=== PATIENT | male | born 1955 | race Caucasian/White ===

== ENCOUNTER 2017-09-16 14:05 | Emergency (ER) | payer BC ==
[~2017-09-16] VITALS: Ht 177.8 cm; Wt 99.0 kg
[~2017-09-16 14:05] MED LIST: ALLO100 PO; AMBI5TAB PO; ATOR10 PO; HYDR10TA16 PO; NEXI20CA PO; TOPR25TA2 PO
[2017-09-16 14:18] VITALS: BP 141/97; PULSE 102; RESP 16; TEMP 98.4; O2SAT 99
[2017-09-16] MEDS ORDERED: ASPI1TAB57 PO (15:26)
[2017-09-16] MEDS ORDERED: ALLO300T2 PO (15:26)
[2017-09-16] MEDS ORDERED: OMEP20TA93 PO (15:26)
[2017-09-16] MEDS ORDERED: AMLO5TAB2 PO (15:26)
[2017-09-16] MEDS ORDERED: VITA2000 PO (15:26)
[2017-09-16] MEDS ORDERED: HYDR-2376 PO (15:26)
[2017-09-16] MEDS ORDERED: OMEG100046 (15:26)
[2017-09-16] MEDS ORDERED: METO50TA PO (15:26)
[2017-09-16] MEDS ORDERED: LOSA100T PO (15:26)
[2017-09-16] MEDS ORDERED: AUGM875T3 PO (15:38)
--- NOTE | 2017-09-16 15:38 | PD ---
HPI Chief Complaint: Bite or Sting Time Seen by Provider: 15:16 Travel History International Travel<30 days: No Contact w/Intl Traveler<30days: No Traveled to known affect area: No History of Present Illness HPI 62-year-old male here with left thumb pain and subungual hematoma after his dog bit down on his nail accidentally. He reports the nail turned ecchymotic immediately after the injury. He noticed some redness around the cuticle today and bloody drainage prompting his visit. Pain is moderate. Reproducible when the area is touched. Slightly relieved with rest. Dog is up-to-date on immunizations. Severity is moderate. PFSH Past Medical History Arthritis: Yes (DEEJAY WRIST) Blood Disorders: No Cancer: No Cardiovascular Problems: Yes (htn on meds) High Cholesterol: Yes Diabetes: No Diminished Hearing: No Gastrointestinal Disorders: Yes (DR KENDRICK FOR ESOPHAGUS PROBLEM) GERD: Yes Glaucoma: No Gout: Yes Hepatitis: No Hiatal Hernia: No Hypertension: Yes Immune Disorder: No Implanted Vascular Access Dvce: No Medical other: Yes (ARTHRITIS) Neurologic: No Psychiatric: No Respiratory: Yes (SLEEP APNEA, USES CPAP) Sleep Apnea: Yes Thyroid Disease: No Ulcer: Yes Past Surgical History Abdominal Surgery: No Cardiac Surgery: No Ear Surgery: No Endocrine Surgery: No Eye Surgery: No Genitourinary Surgery: No Gynecologic Surgery: No Neurologic Surgery: No Oral Surgery: No Pacemaker: No Thoracic Surgery: No Other Surgery: No Social History Alcohol Use: Yes (OCCASIONAL) Tobacco Use: No (QUIT 3 YEARS AGO) Substance Use: No Allergies-Medications (Allergen,Severity, Reaction): Coded Allergies: No Known Allergies (Verified Adverse Reaction, Unknown, 09/18/17) Reported Meds & Prescriptions Reported Meds & Active Scripts Active Augmentin (Amoxicillin-Clavulanate) 875-125 Mg Tab 1 Tab PO BID Reported Hydrocodone-Acetaminophen 7.5-300 Mg Tab 1 Tab PO TID PRN Vitamin D3 (Cholecalciferol) 2,000 Unit Cap 2,000 Units PO DAILY Fish Oil 1,000 mg Softgel ([place]-3/Dha/Epa/Fish Oil) 1,000 Mg (120 Mg-180 Mg) Capsule Aspirin 81 (Aspirin) 81 Mg Tabdr 81 Mg PO DAILY Amlodipine (Amlodipine Besylate) 5 Mg Tab 5 Mg PO DAILY Omeprazole 20 Mg Tab 20 Mg PO DAILY Metoprolol Tartrate 50 Mg Tab 50 Mg PO DAILY Losartan (Losartan Potassium) 100 Mg Tab 100 Mg PO DAILY Allopurinol 300 Mg Tab 300 Mg PO DAILY Review of Systems Except as stated in HPI: all other systems reviewed are Neg General / Constitutional: No: Fever Eyes: No: Visual changes HENT: No: Headaches Cardiovascular: No: Chest Pain or Discomfort Respiratory: No: Shortness of Breath Gastrointestinal: No: Abdominal Pain Physical Exam Narrative GENERAL: Alert and well-appearing male. SKIN: Warm and dry. HEAD: Normocephalic. EYES: No injection or drainage. NECK: Supple, trachea midline. MUSCULOSKELETAL: No cyanosis, or edema. Left thumb: Subungual hematoma encompassing at least 75% of the nail. Mild erythema and swelling at the cuticle. Nail partially of old near the cuticle. Patient is able to flex and extend the thumb without difficulty. Normal sensation. Data Data Last Documented VS Vital Signs Date Time Temp Pulse Resp B/P (MAP) Pulse Ox O2 Delivery O2 Flow Rate FiO2 09/16/17 14:18 98.4 102 16 141/97 (112) 99 Orders Orders Ed Discharge Order (09/16/17 15:39) MDM Medical Decision Making Medical Screen Exam Complete: Yes Emergency Medical Condition: Yes Differential Diagnosis Subungual hematoma, fingernail avulsion, animal bite, tuft fracture Narrative Course 62-year-old male here with left thumb pain and subungual hematoma after his dog bit down on his nail accidentally. He reports the nail turned ecchymotic immediately after the injury. He noticed some redness around the cuticle today and let he drainage prompting his visit. On exam he has a subungual hematoma with minimal swelling to the distal phalanx. I recommended x-ray and fingernail removal but patient declined both. Risk of serious infection and permanent disability discussed with patient. Trephination was performed which released a moderate amount of blood. Patient reported immediate symptom improvement. He will be prescribed Augmentin. Return precautions were discussed. Patient verbalizes understanding and agrees to plan Diagnosis Primary Impression: Subungual hematoma of left thumb Qualified Codes: S60.112A - Contusion of left thumb with damage to nail, initial encounter Additional Impression: Animal bite Referrals: Primary Care Physician Additional Instructions: Continue to soak in warm Epson salt soaks. Antibiotics as prescribed. Keep the area clean and dry. Cover with a dressing. Return if he developed new or worsening symptoms. Scripts Amoxicillin-Clavulanate (Augmentin) 875-125 Mg Tab 1 TAB PO BID for Infection, #20 TAB 0 Refills Prov: Maranda Isbell 09/16/17 Disposition: 01 DISCHARGE HOME Condition: Stable Maranda Isbell Sep 16, 2017 15:38
== END 2017-09-16 15:51 | disposition home or self-care (01) ==
LOC: PHEFT 14:05
DX: S60.112A Contusion of left thumb with damage to nail, initial encounter (principal); I10 Essential (primary) hypertension; W54.0XXA Bitten by dog, initial encounter
CPT/HCPCS: 11740

== ENCOUNTER 2017-09-18 08:05 | Emergency (ER) | payer BC ==
[~2017-09-18] VITALS: Ht 177.8 cm; Wt 98.0 kg
[~2017-09-18 08:05] MED LIST changes: +ALLO300T2 PO; +AMLO5TAB2 PO; +ASPI1TAB57 PO; +AUGM875T3 PO; +HYDR-2376 PO; +LOSA100T PO; +METO50TA PO; +OMEG100046; +OMEP20TA93 PO; +VITA2000 PO
[2017-09-18 08:08] VITALS: BP 143/84; PULSE 96; RESP 16; TEMP 97.8; O2SAT 100
--- NOTE | 2017-09-18 08:25 | PD ---
HPI Chief Complaint: Injury Time Seen by Provider: 08:13 Travel History International Travel<30 days: No Contact w/Intl Traveler<30days: No Traveled to known affect area: No History of Present Illness HPI 62 y/o male presents with left knee pain after he slipped and landed on that area. He did not hit his head or black out. He denies any other concurrent complaints. He states he takes a baby aspirin in terms of blood thinner medications. He states that he's had prior injury to that knee with a large laceration that was fixed in the [facility]. Quality is sharp. Severity is moderate. Pain is worse with movement. He denies other modifying factors. PFSH Past Medical History Arthritis: Yes (DEEJAY WRIST) Blood Disorders: No Cancer: No Cardiovascular Problems: Yes (htn on meds) High Cholesterol: Yes Diabetes: No Diminished Hearing: No Gastrointestinal Disorders: Yes (DR KEDNRICK FOR ESOPHAGUS PROBLEM) GERD: Yes Glaucoma: No Gout: Yes Hepatitis: No Hiatal Hernia: No Hypertension: Yes Immune Disorder: No Implanted Vascular Access Dvce: No Neurologic: No Psychiatric: No Respiratory: Yes (SLEEP APNEA, USES CPAP) Sleep Apnea: Yes Thyroid Disease: No Ulcer: Yes Past Surgical History Abdominal Surgery: No Cardiac Surgery: No Ear Surgery: No Endocrine Surgery: No Eye Surgery: No Genitourinary Surgery: No Gynecologic Surgery: No Neurologic Surgery: No Oral Surgery: No Pacemaker: No Thoracic Surgery: No Other Surgery: No Social History Alcohol Use: Yes (OCCASIONAL) Tobacco Use: No (QUIT 3 YEARS AGO) Substance Use: No Allergies-Medications (Allergen,Severity, Reaction): Coded Allergies: No Known Allergies (Verified Adverse Reaction, Unknown, 09/18/17) Reported Meds & Prescriptions Reported Meds & Active Scripts Active Augmentin (Amoxicillin-Clavulanate) 875-125 Mg Tab 1 Tab PO BID Reported Hydrocodone-Acetaminophen 7.5-300 Mg Tab 1 Tab PO TID PRN Vitamin D3 (Cholecalciferol) 2,000 Unit Cap 2,000 Units PO DAILY Fish Oil 1,000 mg Softgel ([place]-3/Dha/Epa/Fish Oil) 1,000 Mg (120 Mg-180 Mg) Capsule Aspirin 81 (Aspirin) 81 Mg Tabdr 81 Mg PO DAILY Amlodipine (Amlodipine Besylate) 5 Mg Tab 5 Mg PO DAILY Omeprazole 20 Mg Tab 20 Mg PO DAILY Metoprolol Tartrate 50 Mg Tab 50 Mg PO DAILY Losartan (Losartan Potassium) 100 Mg Tab 100 Mg PO DAILY Allopurinol 300 Mg Tab 300 Mg PO DAILY Review of Systems Except as stated in HPI: all other systems reviewed are Neg Physical Exam Narrative GENERAL: Well-nourished, well-developed patient. Well-appearing SKIN: Warm and dry. HEAD: Normocephalic and atraumatic. EYES: No injection or drainage. ENT: No nasal drainage noted. NECK: Supple, trachea midline. No tenderness in midline CARDIOVASCULAR: Regular rate and rhythm RESPIRATORY: Breath sounds equal bilaterally. No accessory muscle use. GASTROINTESTINAL: Abdomen soft, non-tender, nondistended. EXTREMITIES: No edema.Pain with palpation of left knee with abrasion and small hematoma over patella, no pain with other joints , neurovascularly intact, no lacerations over, compartments soft. BACK: Nontender without obvious deformity. NEUROLOGICAL: Awake and alert. Motor and sensory grossly within normal limits. Normal speech. Data Data Last Documented VS Vital Signs Date Time Temp Pulse Resp B/P (MAP) Pulse Ox O2 Delivery O2 Flow Rate FiO2 09/18/17 08:08 97.8 96 16 143/84 (103) 100 Orders Orders Knee, Complete (4vws) (09/18/17 ) Ed Discharge Order (09/18/17 09:05) MDM Medical Decision Making Medical Screen Exam Complete: Yes Emergency Medical Condition: Yes Medical Record Reviewed: Yes (past history confirmed) Interpretation(s) left knee xray no acute fracture Differential Diagnosis Fracture, strain, sprain Narrative Course We will check x-ray and reevaluate xray no acute fracture, Patient denies any new complaints, all questions answered. Patient knows that follow up is incumbent on them and to return to the emergency room immediately if new or worsening symptoms develop. Patient given strict return precautions, vitals reviewed and are normal, agrees to further workup as an outpatient. Discussed with patient knee immobilizer but given he is not having significant pain of his knee currently and it is mainly over area of hematoma to the patellar surface he agrees at this time to weight bearing as tolerated and close outpatient follow-up and understands we cannot rule out ligamentous injury here. Diagnosis Primary Impression: Left knee pain Qualified Codes: M25.562 - Pain in left knee Patient Instructions: General Instructions Additional Instructions: tylenol as needed, follow with primary this week, return as needed Med/Other Pt SpecificInfo: No Change to Meds Disposition: 01 DISCHARGE HOME Condition: Stable Alem Ivey MD Sep 18, 2017 08:25
--- NOTE | 2017-09-18 08:53 | RADRPT ---
EXAM DATE/TIME: 09/18/2017 08:33 [facility] COMPARISON: No previous studies available for comparison. INDICATIONS : Fall, left knee swelling. Prior injury 1.5 years ago artery in left knee was tied off. MEDICAL HISTORY : None. SURGICAL HISTORY : artery tied off in left knee ENCOUNTER: Initial ACUITY: 1 day PAIN SCORE: 2/10 LOCATION: Left knee FINDINGS: The examination demonstrates mild tricompartmental osteoarthritis. There is no significant joint effu holly. There is some soft tissue swelling of the prepatellar fat pad. No acute fracture is seen. CONCLUSION: 1. No acute fracture. 2. Soft tissue swelling. 3. Mild arthritic changes. Ariel Lim MD on September 18, 2017 at 8:51 Board Certified Radiologist. This report was verified electronically.
== END 2017-09-18 09:20 | disposition home or self-care (01) ==
LOC: PHEFT 08:05
DX: M25.562 Pain in left knee (principal); E78.00 Pure hypercholesterolemia, unspecified; I10 Essential (primary) hypertension; K21.9 Gastro-esophageal reflux disease without esophagitis; M10.9 Gout, unspecified; G47.30 Sleep apnea, unspecified; Z87.891 Personal history of nicotine dependence
CPT/HCPCS: 73564; 99282